=== PATIENT | female | born 1965 ===

== ENCOUNTER 2017-01-26 02:01 | Emergency (ER) | payer MEDICAID, OTHER ==
[2017-01-26 02:01] VITALS: BMI 41.6
[2017-01-26] MEDS ORDERED: Sodium Chloride 0.9% 1,000 ML IV ONE (03:11)
--- NOTE | 2017-01-26 03:14 | C.PDOC ---
History Of Present Illness <Karina Nieves - Last Filed: 01/26/17 06:43> <Susanne Muniz - Last Filed: 01/26/17 07:48> 51 yo female w/PHx of constipation come in for evaluation of epigastric pain gradually developed since yesterday AM. pt reports, pain is intermittent, mostly epigastric, radiating down to LLQ. Pt denies decrease of appetite or change in pain due to food intake. Last BM- today twice". Otherwise, pt denies fever, chills, CP, SOB, dyspnea, diaphoresis, palpitation, hemaemesis, hematoschezia, hematuria, back pain UTI sx, (Karina Nieves) History Per: Patient History/Exam Limitations: intoxication Onset/Duration Of Symptoms: Gradual <Karina Nieves - Last Filed: 01/26/17 06:43> <Susanne Muniz - Last Filed: 01/26/17 07:48> Time Seen by Provider: 01/26/17 02:49 Chief Complaint (Nursing): Abdominal Pain Past Medical History Reviewed: Historical Data, Nursing Documentation, Vital Signs - Medical History PMH: HTN Denies: Chronic Kidney Disease Other PMH: Obesity Family History: States: No Known Family Hx - Social History Hx Tobacco Use: No Hx Alcohol Use: No Hx Substance Use: No - Immunization History Hx Tetanus Toxoid Vaccination: No Hx Influenza Vaccination: No Hx Pneumococcal Vaccination: No <Karina Nieves - Last Filed: 01/26/17 06:43> Vital Signs: Last Vital Signs Temp 98.2 F 01/26/17 06:51 Pulse 84 01/26/17 06:51 Resp 20 01/26/17 06:51 BP 143/75 01/26/17 06:51 Pulse Ox 96 01/26/17 06:51 Review Of Systems Except As Marked, All Systems Reviewed And Found Negative. Constitutional: Negative for: Fever, Chills ENT: Negative for: Throat Pain, Throat Swelling Cardiovascular: Negative for: Chest Pain, Palpitations Respiratory: Negative for: Cough, Shortness of Breath, Wheezing Gastrointestinal: Positive for: Abdominal Pain. Negative for: Nausea, Vomiting , Diarrhea, Melena, Hematochezia, Hematemesis Musculoskeletal: Negative for: Neck Pain, Back Pain Skin: Negative for: Rash Neurological: Negative for: Weakness, Numbness, Altered Mental Status, Dizziness <Karina Nieves - Last Filed: 01/26/17 06:43> Physical Exam - Physical Exam Appears: Well, Non-toxic, No Acute Distress Skin: Normal Color, Warm, No Rash Head: Normacephalic Eye(s): bilateral: PERRL Nose: No Discharge Oral Mucosa: Moist, No Drooling Tongue: Normal Appearing Lips: Normal Appearing Throat: Normal, No Erythema, No Exudate, No Drooling Neck: Normal ROM, Trachea Midline, Supple Cardiovascular: Rhythm Regular Respiratory: No Decreased Breath Sounds, No Accessory Muscle Use, No Stridor, No Wheezing Gastrointestinal/Abdominal: Tenderness (moderate epigastric and LLQ), No Distention, No Guarding Back: No CVA Tenderness Extremity: No Tenderness, No Pedal Edema, No Capillary Refill, No Deformity Extremity: Bilateral: Atraumatic Neurological/Psych: Oriented x3, Normal Speech <Karina Nieves - Last Filed: 01/26/17 06:43> ED Course And Treatment - Laboratory Results Result Diagrams: 01/26/17 03:23 01/26/17 03:23 ECG: Interpreted By Me, Viewed By Me ECG Rhythm: Sinus Rhythm ECG Interpretation: Normal Interpretation Of ECG: SR@80/min, LAD, no acute T wave or ST-T changes. O2 Sat by Pulse Oximetry: 96 Pulse Ox Interpretation: Normal Progress Note: Pt was OBS in ED for 3 hours and remaine dstable. On re- evaluation, pt is afebrile, hemodynamicaly stable. Non-toxic. Pt reports, moderate improvement in pain. ABd: benign, (-) guarding, (-) rebound. back: (- ) CVA tenderness. NO peripheral edema. Blood work review, mild leukocytosis, hyperglycemia noted on CMP. Pt denies previous hf ox DM. UA results review and appears normal. EKG- normal. CT abd/pelvis r/o diverticulitis, cholelithiasis - results pending. Case sign out ShahabELY Mariscal. <Karina Nieves - Last Filed: 01/26/17 06:43> - Laboratory Results Result Diagrams: 01/26/17 03:23 01/26/17 03:23 <Susanne Muniz - Last Filed: 01/26/17 07:48> Medical Decision Making <Karina Nieves - Last Filed: 01/26/17 06:43> <Susanne Muniz - Last Filed: 01/26/17 07:48> Medical Decision Making: Sign out received at 0700, Pending CT scan and re-examination. CT of the abdomen shows (+) diverticulitis of the distal descending colon, no microperforation or abscess. On re-examination, the patient reports mild improvement of symptoms. Abdomen is soft, non-tender and patient is tolerating PO well. (Susanne Muniz) Disposition <Karina Nievse - Last Filed: 01/26/17 06:43> - Disposition Disposition Time: 07:29 <Susanne Muniz - Last Filed: 01/26/17 07:48> - Disposition Referrals: [facility] [Outside] Disposition: HOME/ ROUTINE Condition: GOOD Additional Instructions: Follow up with the medical doctor within 1-2 days. return if worsened Prescriptions: Ciprofloxacin [Cipro] 1 tab PO BID #14 tab metroNIDAZOLE [Flagyl] 500 mg PO BID #14 tab traMADol [Ultram] 50 mg PO Q6 PRN #20 tab PRN Reason: Pain Instructions: Diverticulitis (ED) - Clinical Impression Clinical Impression: Diverticulitis
[2017-01-26] MEDS ORDERED: Sodium Chloride 0.9% 1,000 ML ONE (03:23)
[2017-01-26] MEDS ORDERED: Morphine 4 MG/ML VIAL ONE (03:24)
[2017-01-26 03:26] LABS: BASO # 0.1 K/uL (0.0-0.2); BASO % 0.5 % (0.0-2.0); EOS # 0.2 K/uL (0.0-0.7); EOS % 1.6 % (0.0-4.0); HEMATOCRIT 41.3 % (34.0-47.0); LYMPH # 1.8 K/uL (1.0-4.3); LYMPH % 15.5 % (20.0-40.0); MEAN CELL VOLUME 86.2 fL (81.0-99.0); MEAN CORPUSCULAR HEMOGLOBIN 28.7 pg (27.0-31.0); MEAN CORPUSCULAR HGB CONC 33.3 g/dL (33.0-37.0); MEAN PLATELET VOLUME 9.1 fL (7.2-11.7); MONO # 0.9 K/uL (0.0-0.8); MONO % 7.7 % (0.0-10.0); NRBC % 0.1 % (0.0-2.0); RED CELL DISTRIBUTION WIDTH 14.9 % (11.5-14.5); WHITE BLOOD COUNT 11.7 K/uL (4.8-10.8)
[2017-01-26 03:33] LABS: CHLORIDE 100 mmol/L (98-107)
[2017-01-26 03:34] LABS: POTASSIUM 3.6 mmol/L (3.6-5.2); SODIUM 138 mmol/L (132-148)
[2017-01-26 03:36] LABS: AMYLASE 53 U/L (30-110); BILIRUBIN,TOTAL 0.6 mg/dL (0.2-1.3); CARBON DIOXIDE 24 mmol/L (22-30); GFR AFRICAN-AMERICAN > 60
[2017-01-26 03:37] LABS: ALB/GLOB RATIO 1.2 (1.0-2.1); ALKALINE PHOSPHATASE 185 U/L (38-126); ALT/SGPT 43 U/L (9-52); AST/SGOT 32 U/L (14-36); BLOOD UREA NITROGEN 5 mg/dL (7-17); CALCIUM 8.4 mg/dl (8.6-10.4); GLUCOSE,RANDOM 203 mg/dL (65-105); TOTAL PROTEIN 7.2 g/dL (6.3-8.3)
[2017-01-26] MEDS ORDERED: Iohexol 240 (50 ml) PO ONE ×2 (03:55→04:15)
[2017-01-26] MEDS ORDERED: Iohexol 240 (50 ml) ONE (04:03)
[2017-01-26] MEDS ORDERED: Iodixanol 320 MG/ML 100 ML BOTTLE IV ONE (04:19)
[2017-01-26 04:27] LABS: RBC URINE 7 /hpf (0-3); URINE BACTERIA RARE (<OCC); URINE BILIRUBIN NEGATIVE (NEGATIVE); URINE BLOOD 1+ (NEGATIVE); URINE COLOR Yellow (YELLOW); URINE GLUCOSE (UA) 1+ mg/dL (Normal); URINE KETONE NEGATIVE (NEGATIVE); URINE LEUKOCYTE ESTERASE TRACE Leu/uL (Negative); URINE PROTEIN NEGATIVE (NEGATIVE); URINE UROBILINOGEN NORMAL mg/dL (0.2-1.0); WBC URINE 7 /hpf (0-5)
[2017-01-26 05:53] VITALS: RESP 20
[2017-01-26 06:43] VITALS: O2SAT 96
[2017-01-26 06:52] VITALS: BP 143/75; PULSE 84; TEMP 98.2
--- NOTE | 2017-01-26 06:58 | CT ---
EXAM: CT Abdomen and Pelvis With Intravenous Contrast CLINICAL HISTORY: 51 years old, female; Pain; Abdominal pain; Additional info: Llq pain TECHNIQUE: Axial computed tomography images of the abdomen and pelvis with intravenous contrast. This CT exam was performed using one or more of the following dose reduction techniques: automated exposure control, adjustment of the mA and/or kV according to patient size, and/or use of iterative reconstruction technique. Coronal and sagittal reformatted images were created and reviewed. CONTRAST: 100 mL of [id number] administered intravenously. EXAM DATE/TIME: 01/26/2017 3:13 AM COMPARISON: CT - ABD PELVIS IV CONTRAST ONLY 01/18/2016 3:06:39 AM FINDINGS: The liver is decreased in attenuation consistent with fatty infiltration. The spleen is normal. The pancreas is normal. No gallstones. No hydronephrosis or perinephric stranding. Colonic diverticulosis. The patient's previously seen diverticulitis in the proximal sigmoid colon has resolved. There is now thickening of the distal descending colon. There is stranding in the adjacent fat consistent with inflammation. A prominent diverticulitis noted coronal images 57-58 Findings consistent with diverticulitis. No microperforation or abscess. A normal appendix is identified coronal images 62 through 69. Stable calcification right adnexa. IMPRESSION: Diverticulitis of the distal descending colon.
--- NOTE | 2017-01-28 18:09 | CARD ---
APPROVED REPORT EKG Measurement Heart [id number] <Conclusion> Normal sinus rhythm Normal ECG
== END 2017-01-26 07:45 | disposition home or self-care (01) ==
LOC: C.ER 02:01
DX: K57.32 Diverticulitis of large intestine without perforation or abscess without bleeding (principal)
CPT/HCPCS: 74177; 80053; 81001; 82150; 83690; 85025; 85610; 85730; 93005; 96361; 96375; 99285; C9113; J2270; J2405; J7040; Q9966; Q9967

== ENCOUNTER 2017-04-27 09:50 | Emergency (ER) | payer OTHER ==
[2017-04-27 09:50] VITALS: BMI 41.6
[2017-04-27 10:04] VITALS: O2SAT 96
[2017-04-27] MEDS ORDERED: Naproxen 550 mg Tab PO STA (10:14)
[2017-04-27] MEDS ORDERED: Naproxen 550 mg Tab PO ONE (10:22)
--- NOTE | 2017-04-27 11:15 | C.PDOC ---
History Of Present Illness 51-year-old female, PMHx includes Hypertension, presents to the emergency department with complaints of left shoulder pain x3 daysm that is worse with movement of shoulder. Patient states pain radiates to left upper chest and left back. She is also complaining of left foot pain since she woke up yesterday, on sole of foot. Patient denies any falls or injuries. She denies chest pain, shortness of breath, cough, fever, sensory changes, or any other associated symptoms. No other complaints at this time. Time Seen by Provider: 04/27/17 10:06 Chief Complaint (Nursing): Upper Extremity Problem/Injury History Per: Patient History/Exam Limitations: no limitations Onset/Duration Of Symptoms: Days Current Symptoms Are (Timing): Still Present Severity: Moderate Past Medical History Reviewed: Historical Data, Nursing Documentation, Vital Signs Vital Signs: Last Vital Signs Temp 98.0 F 04/27/17 10:03 Pulse 104 H 04/27/17 10:03 Resp 20 04/27/17 10:03 BP 157/94 H 04/27/17 10:03 Pulse Ox 96 04/27/17 11:21 - Medical History PMH: HTN Family History: States: No Known Family Hx - Social History Hx Tobacco Use: No Hx Alcohol Use: No Hx Substance Use: No - Immunization History Hx Tetanus Toxoid Vaccination: No Hx Influenza Vaccination: No Hx Pneumococcal Vaccination: No Review Of Systems Except As Marked, All Systems Reviewed And Found Negative. Cardiovascular: Negative for: Chest Pain Gastrointestinal: Negative for: Nausea, Vomiting Musculoskeletal: Positive for: Shoulder Pain Physical Exam - Physical Exam Appears: Non-toxic, No Acute Distress Skin: Warm, Dry, No Rash Eye(s): bilateral: Normal Inspection, PERRL Neck: Normal ROM Cardiovascular: Rhythm Regular, No Murmur Respiratory: Normal Breath Sounds, No Accessory Muscle Use Extremity: Other (Left shoulder: tender to palpation of anterior and superior aspect, worse w movement. No rashes. Left Foot: plantar aspect tenderness of metatarsals) Pulses: Left Dorsalis Pedis: Normal, Right Dorsalis Pedis: Normal Neurological/Psych: Oriented x3, Normal Motor, Normal Sensation, Other (No focal deficit) ED Course And Treatment ECG: Interpreted By Me, Viewed By Me ECG Rhythm: Sinus Rhythm ECG Interpretation: No Acute Changes Rate From EC O2 Sat by Pulse Oximetry: 96 (on RA) Pulse Ox Interpretation: Normal Progress Note: EKG, X-Ray Foot and Shoulder ordered and reviewed. patient treated with PO Flexeril, PO Tylenol and PO Naproxen. Disposition Counseled Patient/Family Regarding: Diagnosis, Need For Followup, Rx Given - Disposition Referrals: [facility] [Outside] [facility] [Outside] Fransisco Carr III, MD [Staff Provider] - [facility]iatry [facility] [Outside] Disposition: HOME/ ROUTINE Disposition Time: 11:15 Condition: STABLE Additional Instructions: SEGUIMIENTO CON ORTOPEDIA / PODIATRA DENTRO DE 1 SEMANA USE LOS MEDICAMENTOS QUE CAT NECESARIOS PARA EL DOLOR DEVUELVA A ER SI LOS SNTOMAS EMPEORARAN Prescriptions: Acetaminophen [Tylenol 325mg tab] 650 mg PO Q6 PRN #30 tab PRN Reason: pain/fever Cyclobenzaprine [Cyclobenzaprine HCl] 10 mg PO BID PRN #15 tab PRN Reason: Muscle Spasm Instructions: Arthralgia (ED), Shoulder Pain (ED) Print Language: ERITREAN - POA Present On Arrival: None - Clinical Impression Clinical Impression: Left shoulder pain, Left foot pain - Scribe Statement The provider has reviewed the documentation as recorded by the Scribe (Geoff Parker) All medical record entries made by the Scribe were at my direction and personally dictated by me. I have reviewed the chart and agree that the record accurately reflects my personal performance of the history, physical exam, medical decision making, and the department course for this patient. I have also personally directed, reviewed, and agree with the discharge instructions and disposition.
[2017-04-27 11:48] VITALS: BP 167/90; PULSE 82; RESP 17; TEMP 98.1
--- NOTE | 2017-04-27 14:39 | RAD ---
PROCEDURE: Left shoulder dated 04/27/2017 HISTORY: left shoulder pain COMPARISON: No prior FINDINGS: BONES: No evidence of acute displaced fracture nor dislocation. Osseous structures appear intact JOINTS: Mild degenerative changes of the left acromioclavicular joint. There is a small elliptical shaped calcification within the soft tissues adjacent to the medial aspect proximal humeral shaft nonspecific. SOFT TISSUES: As above. No radiopaque foreign bodies OTHER FINDINGS: None. IMPRESSION: No evidence of acute displaced fracture nor dislocation. Mild DJD left acromioclavicular joint.
--- NOTE | 2017-04-27 15:21 | RAD ---
PROCEDURE: Left foot dated 04/27/2017 Three views left foot performed. HISTORY: left foot pain COMPARISON: Comparison made with radiographs left foot 11/16/2015 FINDINGS: BONES: No evidence of acute displaced fracture nor dislocation. The osseous structures intact. No cortical destructive changes. Re- demonstrated are small plantar and very tiny posterior calcaneal enthesophytes JOINTS: Minimal hallux valgus deformity with prominence of the head of the 1st metatarsal and minimal DJD 1st MTP joint. SOFT TISSUES: Soft tissues appear grossly unremarkable without evidence of emphysema or radiopaque foreign bodies. OTHER FINDINGS: None. IMPRESSION: No acute fractures. Minimal hallux valgus deformity with prominence of the head of the 1st metatarsal and minimal DJD 1st MTP joint. Small plantar and tiny posterior calcaneal enthesophyte formation.
--- NOTE | 2017-04-30 16:55 | CARD ---
APPROVED REPORT EKG Measurement Heart [id number] <Conclusion> Sinus rhythm with 1st degree AV block Left axis deviation Pulmonary disease pattern Abnormal ECG
== END 2017-04-27 11:40 | disposition home or self-care (01) ==
LOC: C.ER 09:50
DX: M25.512 Pain in left shoulder (principal); M79.672 Pain in left foot

== ENCOUNTER 2017-04-28 19:06 | Emergency (ER) | payer OTHER ==
[2017-04-28 19:06] VITALS: BMI 41.6
[2017-04-28 19:14] VITALS: O2SAT 96
--- NOTE | 2017-04-28 19:55 | C.PDOC ---
History Of Present Illness Patient is a 51 y/o female that presents to the ED for evaluation of sudden onset of severe pain to plantar aspect of left foot that developed yesterday. Pt states that pain was worse today, and is worse with weight bearing. Otherwise , denies any trauma, injury, extremity weakness/numbness, sensory deficits, skin changes, fever, or any other associated symptoms at this time. Time Seen by Provider: 04/28/17 19:24 Chief Complaint (Nursing): Lower Extremity Problem/Injury History Per: Patient History/Exam Limitations: no limitations Onset/Duration Of Symptoms: Days (1) Current Symptoms Are (Timing): Still Present Severity: Severe Recent travel outside of the [place]: No Additional History Per: Patient Past Medical History Reviewed: Historical Data, Nursing Documentation, Vital Signs Vital Signs: Last Vital Signs Temp 98.7 F 04/28/17 19:12 Pulse 60 04/28/17 19:12 Resp 14 04/28/17 19:12 BP 163/81 H 04/28/17 19:12 Pulse Ox 96 04/28/17 20:47 - Medical History PMH: HTN Denies: Chronic Kidney Disease Family History: States: Unknown Family Hx - Social History Hx Tobacco Use: No Hx Alcohol Use: No Hx Substance Use: No - Immunization History Hx Tetanus Toxoid Vaccination: No Hx Influenza Vaccination: No Hx Pneumococcal Vaccination: No Review Of Systems Except As Marked, All Systems Reviewed And Found Negative. Constitutional: Negative for: Fever, Chills Musculoskeletal: Positive for: Foot Pain (left) Skin: Negative for: Rash, Lesions, Bruising Neurological: Negative for: Weakness, Numbness Physical Exam - Physical Exam Appears: Non-toxic, No Acute Distress Skin: Warm, Dry, Other (No open wounds, abrasion, warmth, erythema, or rash to plantar aspect of left forefoot. No lesions or fungus between left toes) Eye(s): bilateral: Normal Inspection, PERRL Extremity: Normal ROM (FROM of left foot), Tenderness (plantar aspect of left foot), Capillary Refill (< 2 sec.), No Deformity, Swelling (mild swelling to plantar aspect of left foot) Extremity: Bilateral: Atraumatic, Normal Color And Temperature, Normal ROM Pulses: Left Dorsalis Pedis: Normal, Right Dorsalis Pedis: Normal Neurological/Psych: Oriented x3, Normal Speech, Normal Motor, Normal Sensation Gait: Steady ED Course And Treatment O2 Sat by Pulse Oximetry: 96 (RA) Pulse Ox Interpretation: Normal Progress Note: Patient was given Toradol in the ER. On reassessment, patient reports feeling better, and reports improvement of pain. Disposition Counseled Patient/Family Regarding: Diagnosis, Need For Followup, Rx Given - Disposition Referrals: Podiatry Clinic [Outside] Disposition: HOME/ ROUTINE Disposition Time: 20:44 Condition: STABLE Additional Instructions: Please follow up with Podiatry clinic Take meds as directed Wear support shoes/ orthopedic-like shoes Return to ER if worse Prescriptions: traMADol [Ultram] 50 mg PO TID #15 tab Instructions: Plantar Fasciitis (ED) Print Language: ESTONIAN - Clinical Impression Clinical Impression: Plantar fasciitis of left foot - PA / CYLINDER CHECKER / Resident Statement MD/DO has reviewed & agrees with the documentation as recorded. - Scribe Statement The provider has reviewed the documentation as recorded by the Davisibabbie Duong All medical record entries made by the Davisibe were at my direction and personally dictated by me. I have reviewed the chart and agree that the record accurately reflects my personal performance of the history, physical exam, medical decision making, and the department course for this patient. I have also personally directed, reviewed, and agree with the discharge instructions and disposition.
[2017-04-28 22:09] VITALS: BP 165/94; PULSE 90; RESP 20; TEMP 98.5
== END 2017-04-28 20:59 | disposition home or self-care (01) ==
LOC: C.ER 19:06
DX: M72.2 Plantar fascial fibromatosis (principal)
CPT/HCPCS: 96372; 99284; J1885

== ENCOUNTER 2017-05-20 01:48 | Emergency (ER) | payer SELFPAY ==
[2017-05-20 01:48] VITALS: BMI 41.6
[2017-05-20 01:57] VITALS: TEMP 97.8
--- NOTE | 2017-05-20 02:23 | C.PDOC ---
History Of Present Illness 51 year old female presents to ED with complaints of itching, redness and irritation to vaginal area since yesterday. Denies any discharge, dysuria, flank pain, hematuria. Time Seen by Provider: 05/20/17 01:58 Chief Complaint (Nursing): Abnormal Skin Integrity History Per: Patient History/Exam Limitations: no limitations Onset/Duration Of Symptoms: Hrs Current Symptoms Are (Timing): Still Present Quality Of Symptoms: Itching Additional History Per: Patient Past Medical History Reviewed: Historical Data, Nursing Documentation, Vital Signs Vital Signs: Last Vital Signs Temp 97.8 F 05/20/17 01:55 Pulse 80 05/20/17 03:31 Resp 14 05/20/17 03:31 BP 164/94 H 05/20/17 03:31 Pulse Ox 96 05/20/17 05:54 - Medical History PMH: HTN Surgical History: No Surg Hx Family History: States: Unknown Family Hx - Social History Hx Tobacco Use: No Hx Alcohol Use: No Hx Substance Use: No - Immunization History Hx Tetanus Toxoid Vaccination: No Hx Influenza Vaccination: No Hx Pneumococcal Vaccination: No Review Of Systems Genitourinary: Positive for: Other (vaginal itchiness, redness and irritation ) . Negative for: Dysuria, Hematuria, Vaginal Discharge Musculoskeletal: Negative for: Other (flank pain ) Physical Exam - Physical Exam Appears: Non-toxic, No Acute Distress Skin: Normal Color, Warm, Dry Head: Atraumatic, Normacephalic Eye(s): bilateral: Normal Inspection Oral Mucosa: Moist Neck: Supple Back: No Vertebral Tenderness Pelvic: Other (vulva brightly erythematous and white patches ) Extremity: Normal ROM, Capillary Refill (less than 2 seconds ) Neurological/Psych: Oriented x3, Normal Speech, Normal Cognition Gait: Steady ED Course And Treatment O2 Sat by Pulse Oximetry: 96 (on RA) Pulse Ox Interpretation: Normal Medical Decision Making Medical Decision Making: Patient with vaginal itching and irritation. Exam consistent with vulvovaginal candidiasis. Benadryl PO given for itching and Diflucan. Disposition Counseled Patient/Family Regarding: Diagnosis, Need For Followup, Rx Given - Disposition Referrals: Jessica Washington MD [Staff Provider] - Disposition: HOME/ ROUTINE Disposition Time: 02:24 Condition: STABLE Additional Instructions: [place] Diflucan en 2 brown si los sntomas persisten Aplicar crema para picar Prescriptions: Benzocaine/Resorcinol [Vagisil Cream] 28 gm TP HS #1 cream..g. Fluconazole [Diflucan] 150 mg PO ONCE #1 tab Instructions: Vulvovaginal Candidiasis (ED) Forms: [employer] (Georgian) Print Language: AUSTRALIAN - POA Present On Arrival: None - Clinical Impression Clinical Impression: Vulvovaginal candidiasis - PA / MICROBIOLOGY TECHNOLOGIST / Resident Statement MD/DO has reviewed & agrees with the documentation as recorded. - Scribe Statement The provider has reviewed the documentation as recorded by the Scribe (Remedios Duong) All medical record entries made by the Scribe were at my direction and personally dictated by me. I have reviewed the chart and agree that the record accurately reflects my personal performance of the history, physical exam, medical decision making, and the department course for this patient. I have also personally directed, reviewed, and agree with the discharge instructions and disposition.
[2017-05-20 03:32] VITALS: BP 164/94; PULSE 80; RESP 14
[2017-05-20 05:48] VITALS: O2SAT 96
== END 2017-05-20 03:00 | disposition home or self-care (01) ==
LOC: C.ER 01:48
DX: B37.3 Candidiasis of vulva and vagina (principal)

== ENCOUNTER 2017-07-01 11:36 | Emergency (ER) | payer SELFPAY ==
[2017-07-01 11:36] VITALS: BMI 41.6
[2017-07-01 11:51] VITALS: RESP 18
[2017-07-01 12:37] LABS: RBC URINE 2 /hpf (0-3); URINE BACTERIA RARE (<OCC); URINE BILIRUBIN NEGATIVE (NEGATIVE); URINE BLOOD 1+ (NEGATIVE); URINE COLOR Yellow (YELLOW); URINE GLUCOSE (UA) 3+ mg/dL (Normal); URINE KETONE 1+ mg/dL (NEGATIVE); URINE LEUKOCYTE ESTERASE NEG Leu/uL (Negative); URINE PROTEIN 2+ mg/dL (NEGATIVE); URINE UROBILINOGEN NORMAL mg/dL (0.2-1.0); WBC URINE 1 /hpf (0-5)
[2017-07-01 12:40] LABS: BASO # 0.1 K/uL (0.0-0.2); BASO % 0.5 % (0.0-2.0); EOS % 0.3 % (0.0-4.0); HEMATOCRIT 47.8 % (34.0-47.0); LYMPH # 1.7 K/uL (1.0-4.3); LYMPH % 15.9 % (20.0-40.0); MEAN CELL VOLUME 84.6 fL (81.0-99.0); MEAN CORPUSCULAR HEMOGLOBIN 29.2 pg (27.0-31.0); MEAN CORPUSCULAR HGB CONC 34.5 g/dL (33.0-37.0); MEAN PLATELET VOLUME 10.2 fL (7.2-11.7); MONO # 0.6 K/uL (0.0-0.8); MONO % 5.7 % (0.0-10.0); RED CELL DISTRIBUTION WIDTH 14.2 % (11.5-14.5); WHITE BLOOD COUNT 10.7 K/uL (4.8-10.8)
[2017-07-01 12:59] LABS: CHLORIDE 99 mmol/L (98-107); POTASSIUM 3.7 mmol/L (3.6-5.2); SODIUM 137 mmol/L (132-148)
[2017-07-01 13:01] LABS: ALB/GLOB RATIO 1.3 (1.0-2.1); GFR AFRICAN-AMERICAN > 60; GLUCOSE,RANDOM 344 mg/dL (65-105); TOTAL PROTEIN 8.1 g/dL (6.3-8.3)
[2017-07-01 13:02] LABS: ALKALINE PHOSPHATASE 235 U/L (38-126); ALT/SGPT 98 U/L (9-52); AST/SGOT 48 U/L (14-36); BILIRUBIN,TOTAL 0.8 mg/dL (0.2-1.3); BLOOD UREA NITROGEN 7 mg/dL (7-17); CALCIUM 9.4 mg/dl (8.6-10.4); CARBON DIOXIDE 22 mmol/L (22-30)
[2017-07-01] MEDS ORDERED: Sodium Chloride 0.9% 1,000 ML IV ONE (13:10)
[2017-07-01] MEDS ORDERED: Morphine 4 MG/ML VIAL ONE (13:32)
--- NOTE | 2017-07-01 13:35 | C.PDOC ---
History Of Present Illness 51 y/o female, with PMHx of HTN, presents to ED for evaluation of diffuse abdominal pain (greatest at LLQ) described as aching since last night. Notes that she has not taken her HTN medications for the past 3 months (ranout). Pt also complaints of vaginal itching and redness for the past 2 months. Pt states that she is sexually active with one partner, uses protection. She denies chest pain, shortness of breath, n/v/d, dysuria/hematuria, vaginal bleeding, fever/chills. Time Seen by Provider: 07/01/17 12:09 Chief Complaint (Nursing): Abdominal Pain History Per: Patient History/Exam Limitations: no limitations Onset/Duration Of Symptoms: Days (1) Current Symptoms Are (Timing): Still Present Severity: Moderate Location Of Pain/Discomfort: Diffuse Radiation Of Pain To:: None Quality Of Discomfort: Cramping Associated Symptoms: denies: Loss Of Appetite, Back Pain, Chest Pain, Constipation, Urinary Symptoms Exacerbating Factors: None Alleviating Factors: None Abnormal Vaginal Bleeding: No Past Medical History Reviewed: Historical Data, Nursing Documentation, Vital Signs Vital Signs: Last Vital Signs Temp 98.3 F 07/01/17 11:49 Pulse 108 H 07/01/17 11:49 Resp 18 07/01/17 11:49 BP 155/102 H 07/01/17 11:49 Pulse Ox 99 07/01/17 17:54 - Medical History PMH: HTN Family History: States: No Known Family Hx - Social History Hx Tobacco Use: No Hx Alcohol Use: No Hx Substance Use: No - Immunization History Hx Tetanus Toxoid Vaccination: No Hx Influenza Vaccination: No Hx Pneumococcal Vaccination: No Review Of Systems Except As Marked, All Systems Reviewed And Found Negative. Constitutional: Negative for: Fever, Chills Cardiovascular: Negative for: Chest Pain, Palpitations Respiratory: Negative for: Cough, Shortness of Breath Gastrointestinal: Positive for: Abdominal Pain. Negative for: Nausea, Vomiting , Diarrhea, Constipation, Melena, Hematochezia Genitourinary: Positive for: Other (vaginal itching and redness). Negative for : Dysuria, Frequency, Hematuria, Vaginal Discharge, Vaginal Bleeding, Rash Musculoskeletal: Negative for: Back Pain Skin: Negative for: Rash, Bruising Neurological: Negative for: Headache Physical Exam - Physical Exam Appears: Well, Non-toxic, No Acute Distress Skin: Warm, Dry, No Rash Head: Normacephalic Eye(s): bilateral: Normal Inspection Oral Mucosa: Moist Neck: Supple Cardiovascular: Rhythm Regular Respiratory: Normal Breath Sounds, No Rales, No Rhonchi, No Wheezing Gastrointestinal/Abdominal: Bowel Sounds, Soft, Tenderness (epigastric, LLQ TTP) , No Distention, No Guarding, No Rebound, Other (obese abdomen) Back: No CVA Tenderness Pelvic: Normal External Exam, Normal Bimanual Exam, No Vaginal Bleeding, Vaginal Discharge (thin white discharge in vault), No Cervical Motion Tenderness , No Cervix Open Extremity: Normal ROM Neurological/Psych: Oriented x3 ED Course And Treatment - Laboratory Results Result Diagrams: 07/01/17 12:31 07/01/17 12:31 O2 Sat by Pulse Oximetry: 99 (RA) Pulse Ox Interpretation: Normal Progress Note: Blood work, UA, CT scan Abd & Pelvis ordered and reviewed. Pt was given IV NS bolus, IV morphine. IM rocephin and PO Azithromycin given for possible chlamydia/gonorrhea. GC swab done and sent. Disposition Counseled Patient/Family Regarding: Studies Performed, Diagnosis, Need For Followup, Rx Given - Disposition Referrals: [facility] [Outside] Disposition: HOME/ ROUTINE Disposition Time: 19:10 Condition: STABLE Additional Instructions: SEGUIMIENTO CON OLIVARES DOCTOR / CLNICA EN 1-2 COOLEY USE MEDICAMENTOS SEGN LO DIRIGIDO BEBIDA DE FLUIDOS DARIUS DEVUELVA A LA EVELIN DE EMERGENCIA SI LOS SNTOMAS EMPEORARAN Prescriptions: Ciprofloxacin [Cipro] 1 tab PO BID #14 tab Hydrocodone/Acetaminophen [Hydrocodon-Acetaminophen 5-325] 1 each PO Q6 PRN #15 tablet PRN Reason: Pain, Moderate (4-7) metFORMIN [glucOPHAGE] 500 mg PO STAT #30 tab metroNIDAZOLE [Flagyl] 500 mg PO TID #21 tab Instructions: Diverticulitis (ED), Bacterial Vaginosis (ED), Diabetes Mellitus Type 2 in Adults (ED) Forms: [facility] (T[place]ight) Print Language: TAIWANESE - POA Present On Arrival: None - Clinical Impression Clinical Impression: Acute diverticulitis, Bacterial vaginosis, Hyperglycemia - Scribe Statement The provider has reviewed the documentation as recorded by the Scribe Kripal Duong All medical record entries made by the Scribe were at my direction and personally dictated by me. I have reviewed the chart and agree that the record accurately reflects my personal performance of the history, physical exam, medical decision making, and the department course for this patient. I have also personally directed, reviewed, and agree with the discharge instructions and disposition.
[2017-07-01] MEDS ORDERED: cefTRIAXone (Rocephin) 250 mg Inj IM STA (14:46)
[2017-07-01] MEDS ORDERED: Iohexol 350mg/ml 100 ML ONE (17:21)
--- NOTE | 2017-07-01 19:03 | CT ---
PROCEDURE: CT Abdomen and Pelvis with contrast HISTORY: DIFFUSE ABD PAIN, GREATEST LLQ COMPARISON: CT abdomen and pelvis with contrast performed 01/26/17 TECHNIQUE: Contrast dose: 100 mL Omnipaque 350 Radiation dose: Total exam DLP = 750.47 MGy-cm. This CT exam was performed using one or more of the following dose reduction techniques: Automated exposure control, adjustment of the mA and/or kV according to patient size, and/or use of iterative reconstruction technique. FINDINGS: LOWER THORAX: No visible consolidation, pleural effusion, or pneumothorax. 5 mm right middle lobe nodule. Small hiatal hernia. LIVER: Hypoattenuation of the liver compatible with hepatic steatosis. Punctate right hepatic lobe calcification, likely granuloma. GALLBLADDER AND BILE DUCTS: Unremarkable. PANCREAS: Unremarkable. SPLEEN: Unremarkable. ADRENALS: Unremarkable. KIDNEYS AND URETERS: The kidneys enhance symmetrically. No hydronephrosis or obstructing calculus identified. VASCULATURE: No aortic aneurysm. BOWEL: With Stomach is nondistended. Lack of oral contrast limits evaluation for bowel pathology. Bowel loops appear within normal limits of caliber without evidence of obstruction. Inflammatory stranding, wall thickening consistent with acute diverticulitis involving the left colon. APPENDIX: The appendix appears within normal limits of caliber. No secondary signs of acute appendicitis. PERITONEUM: No significant free fluid. No definite free air. LYMPH NODES: No bulky adenopathy identified. BLADDER: Unremarkable. REPRODUCTIVE: The uterus is present. Punctate calcification, right adnexa. BONES: No acute osseous abnormality is detected. OTHER FINDINGS: Small fat containing umbilical hernia. IMPRESSION: Acute diverticulitis, distal left colon. Hypoattenuation of the liver compatible with hepatic steatosis. 5 mm right middle lobe nodule. Guidelines by the Fleischner society (radiology 2005; 237:395-400) suggests that in patients with low risk for lung cancer, nodules from 5 mm to 6 mm in diameter should have follow-up in approximately 12 months. In patients with high-risk, such as those were smokers, follow-up is recommended in 6 months. Patients with a known malignancy or risk for metastases should receive 3 month follow-up. Additional incidental findings as above.
[2017-07-01 19:45] VITALS: BP 143/79; PULSE 89; TEMP 98.9; O2SAT 94
== END 2017-07-01 20:25 | disposition home or self-care (01) ==
LOC: C.ER 11:36
DX: K57.32 Diverticulitis of large intestine without perforation or abscess without bleeding (principal); N76.0 Acute vaginitis; R73.9 Hyperglycemia, unspecified
CPT/HCPCS: 74177; 80053; 81001; 82948; 83690; 85025; 87491; 87591; 96372; 96374; 96376; 99285; J0696; J2270; J7040; Q9967

== ENCOUNTER 2017-07-16 11:30 | Emergency (ER) | payer SELFPAY ==
[2017-07-16 11:32] VITALS: BMI 41.6
[2017-07-16 12:03] VITALS: TEMP 98.4
[2017-07-16 14:09] LABS: BASO # 0.1 K/uL (0.0-0.2); BASO % 0.8 % (0.0-2.0); EOS # 0.1 K/uL (0.0-0.7); HEMATOCRIT 42.9 % (34.0-47.0); LYMPH # 2.2 K/uL (1.0-4.3); LYMPH % 31.4 % (20.0-40.0); MEAN CELL VOLUME 84.5 fL (81.0-99.0); MEAN CORPUSCULAR HEMOGLOBIN 29.2 pg (27.0-31.0); MEAN CORPUSCULAR HGB CONC 34.6 g/dL (33.0-37.0); MEAN PLATELET VOLUME 10.5 fL (7.2-11.7); MONO # 0.4 K/uL (0.0-0.8); MONO % 6.2 % (0.0-10.0); NRBC % 0.1 % (0.0-2.0); RED CELL DISTRIBUTION WIDTH 14.4 % (11.5-14.5); WHITE BLOOD COUNT 6.9 K/uL (4.8-10.8)
[2017-07-16 14:18] LABS: CHLORIDE 100 mmol/L (98-107)
[2017-07-16 14:19] LABS: POTASSIUM 3.8 mmol/L (3.6-5.2); SODIUM 135 mmol/L (132-148)
[2017-07-16 14:21] LABS: AST/SGOT 69 U/L (14-36); BILIRUBIN,TOTAL 0.7 mg/dL (0.2-1.3); CARBON DIOXIDE 24 mmol/L (22-30); GFR AFRICAN-AMERICAN > 60; TOTAL PROTEIN 8.3 g/dL (6.3-8.3)
--- NOTE | 2017-07-16 14:21 | RAD ---
HISTORY: SOB COMPARISON: Chest x-ray performed 09/13/14 TECHNIQUE: Chest, one view. FINDINGS: Examination limited by habitus and hypoinflation. LUNGS: No focal consolidation. Please note that chest x-ray has limited sensitivity for the detection of pulmonary masses. PLEURA: No significant pleural effusion identified. No definite pneumothorax . CARDIOVASCULAR: Borderline cardiomegaly. OSSEOUS STRUCTURES: No acute osseous abnormality identified. VISUALIZED UPPER ABDOMEN: Unremarkable. OTHER FINDINGS: None. IMPRESSION: No focal consolidation, significant pleural effusion, or definite pneumothorax identified. Borderline cardiomegaly.
[2017-07-16 14:22] LABS: ALKALINE PHOSPHATASE 119 U/L (38-126); ALT/SGPT 65 U/L (9-52); BLOOD UREA NITROGEN 6 mg/dL (7-17); CALCIUM 9.2 mg/dl (8.6-10.4); GLUCOSE,RANDOM 160 mg/dL (65-105)
--- NOTE | 2017-07-16 14:43 | C.PDOC ---
History Of Present Illness 51 year old female, whose past medical history consists of HTN, presents to the ED for evaluation of intermittent episodes of double vision which began around 4 days ago. Patient reports experiencing double vision when she looks to all direction, but especially when she looks up. Patient states she has never experienced similar symptoms in the past. She denies fever, chills, loss of vision, ocular pain or discharge, headache, nausea, vomiting, focal neurological deficits, disturbances in gait, sensorimotor abnormalities, or history of Diabetes mellitus or multiple sclerosis. Chief Complaint (Nursing): Eye Problem History Per: Patient History/Exam Limitations: no limitations Onset/Duration Of Symptoms: Days (4), Intermittent Episodes Current Symptoms Are (Timing): Still Present Additional History Per: Patient Past Medical History Reviewed: Historical Data, Nursing Documentation, Vital Signs Vital Signs: Last Vital Signs Temp 98.4 F 07/16/17 11:55 Pulse 69 07/16/17 11:55 Resp 20 07/16/17 11:55 BP 167/91 H 07/16/17 11:55 Pulse Ox 96 07/16/17 16:04 - Medical History PMH: HTN Surgical History: No Surg Hx Family History: States: Unknown Family Hx - Social History Hx Tobacco Use: No Hx Alcohol Use: No Hx Substance Use: No - Immunization History Hx Tetanus Toxoid Vaccination: No Hx Influenza Vaccination: No Hx Pneumococcal Vaccination: No Review Of Systems Constitutional: Negative for: Fever, Chills Eyes: Positive for: Vision Change (double vision ). Negative for: Pain, Other ( loss of vision, no ocular discharge ) Gastrointestinal: Negative for: Nausea, Vomiting Neurological: Negative for: Weakness, Numbness, Headache Physical Exam - Physical Exam Appears: Non-toxic, No Acute Distress Skin: Warm, Dry, Rash (vitiligo-like rash to facial area ) Head: Atraumatic, Normacephalic Eye(s): bilateral: Normal Inspection, PERRL, EOMI, Other (no loss of visual isaacs ) Ear(s): Bilateral: Normal Nose: Normal, No Discharge Oral Mucosa: Moist Throat: Normal, No Erythema, No Exudate Neck: Supple, Other (nonpalpable thyroid ) Chest: Symmetrical, No Deformity, No Tenderness Cardiovascular: Rhythm Regular, No Murmur Respiratory: Normal Breath Sounds, No Rales, No Rhonchi, No Wheezing Gastrointestinal/Abdominal: Soft, No Tenderness, No Guarding, No Rebound Extremity: Normal ROM, Capillary Refill (less than 2 seconds ) Neurological/Psych: Oriented x3, Normal Speech, Normal Cognition, Normal Cranial Nerves (2-12 intact ), Normal Motor (5/5 motor strength in bilateral upper and lower extremities ) Gait: Steady ED Course And Treatment - Laboratory Results Result Diagrams: 07/16/17 14:03 07/16/17 14:03 O2 Sat by Pulse Oximetry: 96 (on RA) Pulse Ox Interpretation: Normal - Other Rad CXR X-Ray: Interpreted by Me, Viewed By Me, Read By Radiologist Interpretation: HISTORY: SOB. COMPARISON: Chest x-ray performed 09/13/14. TECHNIQUE: Chest, one view. FINDINGS: Examination limited by habitus and hypoinflation. LUNGS: No focal consolidation. Please note that chest x-ray has limited sensitivity for the detection of pulmonary masses. PLEURA: No significant pleural effusion identified. No definite pneumothorax . CARDIOVASCULAR: Borderline cardiomegaly. OSSEOUS STRUCTURES: No acute osseous abnormality identified. VISUALIZED UPPER ABDOMEN: Unremarkable. OTHER FINDINGS: None. IMPRESSION: No focal consolidation, significant pleural effusion, or definite pneumothorax identified. Borderline cardiomegaly. - CT Scan/US CT Head Other Rad Studies (CT/US): Interpreted By Me, Read By Radiologist, Radiology Report Reviewed CT/US Interpretation: PROCEDURE: CT HEAD WITHOUT CONTRAST. HISTORY: diplopia. COMPARISON: None available. TECHNIQUE: Axial computed tomography images were obtained through the head/brain without intravenous contrast. Radiation dose: Total exam DLP = 806.11 mGy-cm. This CT exam was performed using one or more of the following dose reduction techniques: Automated exposure control, adjustment of the mA and/or kV according to patient size, and/ or use of iterative reconstruction technique. FINDINGS: HEMORRHAGE: No intracranial hemorrhage. BRAIN: Diffuse atrophy with prominence of the ventricles and sulci noted. No mass effect or edema. Intracranial atherosclerosis. Nonspecific white matter hypodensities, which are nonspecific, but often seen with chronic microvascular ischemic disease. Please note that MRI with diffusion imaging is more sensitive in the detection of acute ischemic event. VENTRICLES: No hydrocephalus. CALVARIUM: Unremarkable. PARANASAL SINUSES: Unremarkable as visualized. No significant inflammatory changes. MASTOID AIR CELLS: Unremarkable as visualized. No inflammatory changes. OTHER FINDINGS: None. IMPRESSION: Nonspecific white matter changes. Medical Decision Making Medical Decision Making: Impression: 51 year old female with intermittent double vision Differential Diagnoses include but are not limited to: multiple sclerosis vs myasthenia gravis Plan: * CT head * CXR * bloodwork * reassess and disposition Progress: CXR and bloodwork ordered. 1430: Case discussed with Dr. Redman (neurologist loss control representative), who advises to order Head CT. If CT results are unremarkable, patient will be advised to follow up with Dr. Redman in office for further evaluation. CT Head ordered. Disposition Discussed With Dr.: Jeyson Redman Doctor Will See Patient In The: Office Counseled Patient/Family Regarding: Studies Performed, Diagnosis, Need For Followup - Disposition Referrals: Jeyson Redman MD [Staff Provider] - Disposition: HOME/ ROUTINE Disposition Time: 15:26 Condition: GOOD Additional Instructions: See your neurologist as referred above Forms: [facility] (Maldivian), Gen Discharge Inst Setswana - Clinical Impression Clinical Impression: Monocular diplopia, both eyes - Scribe Statement The provider has reviewed the documentation as recorded by the Scribe (Remedios Duong) Provider Attestation: All medical record entries made by the Scribe were at my direction and personally dictated by me. I have reviewed the chart and agree that the record accurately reflects my personal performance of the history, physical exam, medical decision making, and the department course for this patient. I have also personally directed, reviewed, and agree with the discharge instructions and disposition.
--- NOTE | 2017-07-16 15:01 | CT ---
PROCEDURE: CT HEAD WITHOUT CONTRAST. HISTORY: diplopia COMPARISON: None available. TECHNIQUE: Axial computed tomography images were obtained through the head/brain without intravenous contrast. Radiation dose: Total exam DLP = 806.11 mGy-cm. This CT exam was performed using one or more of the following dose reduction techniques: Automated exposure control, adjustment of the mA and/or kV according to patient size, and/or use of iterative reconstruction technique. FINDINGS: HEMORRHAGE: No intracranial hemorrhage. BRAIN: Diffuse atrophy with prominence of the ventricles and sulci noted. No mass effect or edema. Intracranial atherosclerosis. Nonspecific white matter hypodensities, which are nonspecific, but often seen with chronic microvascular ischemic disease. Please note that MRI with diffusion imaging is more sensitive in the detection of acute ischemic event. VENTRICLES: No hydrocephalus. CALVARIUM: Unremarkable. PARANASAL SINUSES: Unremarkable as visualized. No significant inflammatory changes. MASTOID AIR CELLS: Unremarkable as visualized. No inflammatory changes. OTHER FINDINGS: None. IMPRESSION: Nonspecific white matter changes.
--- NOTE | 2017-07-16 15:01 | C.PDOC ---
History Of Present Illness Pt states she has been having intermittent double vision marilee when she looks up.Denies any prior such episodes.Has been for past 4 days.Pt denies any TOBIAS,n/v, ocular pain or discharge.Pt denies any focal motor or sensory disturbances Chief Complaint (Nursing): Eye Problem Past Medical History Vital Signs: Last Vital Signs Temp 98.4 F 07/16/17 11:55 Pulse 69 07/16/17 11:55 Resp 20 07/16/17 11:55 BP 167/91 H 07/16/17 11:55 Pulse Ox 96 07/16/17 11:55 - Medical History PMH: HTN Denies: Chronic Kidney Disease Family History: States: Unknown Family Hx - Social History Hx Tobacco Use: No Hx Alcohol Use: No Hx Substance Use: No - Immunization History Hx Tetanus Toxoid Vaccination: No Hx Influenza Vaccination: No Hx Pneumococcal Vaccination: No ED Course And Treatment O2 Sat by Pulse Oximetry: 96 Disposition - Disposition Forms: [employer] ([place])
[2017-07-16 16:27] VITALS: BP 132/85; PULSE 84; RESP 16; O2SAT 98
== END 2017-07-16 16:27 | disposition home or self-care (01) ==
LOC: C.ER 11:30
DX: H53.2 Diplopia (principal); I10 Essential (primary) hypertension

== ENCOUNTER 2017-10-20 21:03 | Emergency (ER) | payer SELFPAY ==
[2017-10-20 21:03] VITALS: BMI 41.6
[2017-10-20] MEDS ORDERED: Tramadol 25 mg PO STA (21:53)
--- NOTE | 2017-10-20 22:32 | C.PDOC ---
History Of Present Illness Patient is a 51 y/o male who presents to the ED with a complaint of mid-lower back pain for the last 3 days. Patient notes pain radiates to the left buttocks and left leg with intermittent sensations of tingling/numbness to LLE. Denies trauma, injury, urinary or bowel incontinence, change in urination, or weakness. Admits to taking Tylenol at home with minimal relief. No other physical complaints at this time. Time Seen by Provider: 10/20/17 21:34 Chief Complaint (Nursing): Back Pain History Per: Patient History/Exam Limitations: no limitations Onset/Duration Of Symptoms: Days (3 days) Current Symptoms Are (Timing): Still Present Associated Symptoms: New Numbness (tingling sensation to LLE) Recent travel outside of the [place] States: No Past Medical History Reviewed: Historical Data, Nursing Documentation, Vital Signs Vital Signs: Last Vital Signs Temp 97.6 F 10/20/17 22:41 Pulse 92 H 10/20/17 22:41 Resp 18 10/20/17 22:41 BP 97/63 L 10/20/17 22:41 Pulse Ox 100 10/20/17 23:59 - Medical History PMH: HTN Denies: Chronic Kidney Disease Surgical History: No Surg Hx Family History: States: Unknown Family Hx - Social History Hx Tobacco Use: No Hx Alcohol Use: No Hx Substance Use: No - Immunization History Hx Tetanus Toxoid Vaccination: No Hx Influenza Vaccination: No Hx Pneumococcal Vaccination: No Review Of Systems Constitutional: Negative for: Weakness Genitourinary: Negative for: Dysuria, Frequency, Incontinence Musculoskeletal: Positive for: Back Pain (mid-lower back pain) Neurological: Positive for: Numbness (tingling to LLE) Physical Exam - Physical Exam Appears: Well, Non-toxic, No Acute Distress Skin: Normal Color, Warm, Dry Oral Mucosa: Moist Back: Paraspinal Tenderness (left sided paralumbar tenderness), Straight Leg Raising (40 degrees) Pulses: Left Femoral: Normal, Right Femoral: Normal Neurological/Psych: Oriented x3, Normal Speech, Normal Cognition, Normal Motor ( good strength), Normal Sensation, Normal Reflexes, Other (no focal deficits) Gait: Steady (fully ambulatory) ED Course And Treatment O2 Sat by Pulse Oximetry: 100 Progress Note: Ultram administered. On re-eval, patient feels better and is advised to follow up with PMD. Patient is fully ambulatory in ER. Pt is to be discharged. Disposition Counseled Patient/Family Regarding: Diagnosis, Need For Followup, Rx Given - Disposition Referrals: [facility] [Outside] Disposition: HOME/ ROUTINE Disposition Time: 22:29 Condition: STABLE Additional Instructions: Please follow up with PMD Take meds as directed Return to ER if worse Prescriptions: traMADol [Ultram] 50 mg PO TID #14 tab Instructions: Sciatica (ED) Forms: [employer] (Romanian) - Clinical Impression Clinical Impression: Sciatica - Scribe Statement The provider has reviewed the documentation as recorded by the Scribe Shanna Kunz All medical record entries made by the Scribe were at my direction and personally dictated by me. I have reviewed the chart and agree that the record accurately reflects my personal performance of the history, physical exam, medical decision making, and the department course for this patient. I have also personally directed, reviewed, and agree with the discharge instructions and disposition.
[2017-10-20 22:42] VITALS: BP 97/63; PULSE 92; RESP 18; TEMP 97.6
[2017-10-20 23:56] VITALS: O2SAT 100
== END 2017-10-20 22:41 | disposition home or self-care (01) ==
LOC: C.ER 21:03
DX: M54.30 Sciatica, unspecified side (principal); I10 Essential (primary) hypertension